=== PATIENT | male | born 1965 | race Hispanic/Latino ===

== ENCOUNTER 2025-07-19 06:33 | Observation (INO) | payer SELFPAY ==
[2025-07-19 07:15] VITALS: BMI 24.5
[2025-07-19] MEDS ORDERED: Glucagon 1 MG/ML KIT IM PRN (09:53)
[2025-07-19] MEDS ORDERED: Dextrose 50% Abboject 50 ML SYRINGE SLOW IVP PRN (09:53)
[2025-07-19] MEDS ORDERED: Acetaminophen 325 MG TAB PO PRN (09:56)
[2025-07-19] MEDS ORDERED: Ondansetron PF 4 MG/2 ML Vial IVP PRN (09:56)
[2025-07-19] MEDS ORDERED: Calcium Carbonate 500 MG ChewTAB PO PRN (09:56)
[2025-07-19] MEDS: Aspirin 81 mg Enteric Coated Tablet PO SCH (10:30)
[2025-07-19] MEDS: Furosemide 40 MG (4 mL) VIAL SLOW IVP SCH ×2 (10:30→13:20)
[2025-07-19 10:34] LABS: #Basophils 0.04 10x3/uL (0.0-0.2); #Eosinophils 0.26 10x3/uL (0.0-0.5); #Monocytes 0.44 10x3/uL (0.0-1.1); #Neutrophils 2.43 10x3/uL (1.5-8.4); %Basophils 0.9 % (0.0-2.0); %Eosinophils 5.8 % (0.0-6.0); %Lymphocytes 29.5 % (18.0-47.0); %Monocytes 9.8 % (0.0-10.0); %Neutrophils 53.8 % (40.0-75.0); Hematocrit 48.4 % (38.8-50.0); Hemoglobin 15.7 g/dL (13.5-17.5); Mean Corpuscular Hemoglobin 31.2 pg (27.0-33.0); Mean Corpuscular Volume 96.0 fL (81.2-95.1); Platelet Count 137 10x3/uL (150-450); Red Blood Cell (RBC) Count 5.04 10x6/uL (4.32-5.72); White Blood Cell (WBC) Count 4.51 10x3/uL (3.5-10.5)
[2025-07-19] MEDS: Ezetimibe 10 MG TAB PO SCH (10:50)
[2025-07-19] MEDS: Dapagliflozin Propanediol 10 MG TAB PO SCH (10:50)
[2025-07-19] MEDS: Enoxaparin 40 MG (0.4 mL) SYRINGE SC SCH (10:50)
[2025-07-19] MEDS: Lisinopril 5 MG TAB PO SCH (10:50)
[2025-07-19 11:12] LABS: Troponin I 0.253 ng/mL (< 0.028)
[2025-07-19 13:51] LABS: Troponin I 0.246 ng/mL (< 0.028)
[2025-07-19] MEDS: Guaifenesin DM 100-10/5 ML UDCUP PO PRN (17:21)
[2025-07-20 05:39] LABS: #Basophils 0.05 10x3/uL (0.0-0.2); #Eosinophils 0.30 10x3/uL (0.0-0.5); #Monocytes 0.69 10x3/uL (0.0-1.1); #Neutrophils 3.72 10x3/uL (1.5-8.4); %Basophils 0.8 % (0.0-2.0); %Eosinophils 4.8 % (0.0-6.0); %Lymphocytes 22.7 % (18.0-47.0); %Monocytes 11.1 % (0.0-10.0); %Neutrophils 60.1 % (40.0-75.0); Hematocrit 47.4 % (38.8-50.0); Hemoglobin 16.0 g/dL (13.5-17.5); Mean Corpuscular Hemoglobin 31.8 pg (27.0-33.0); Mean Corpuscular Volume 94.2 fL (81.2-95.1); Platelet Count 152 10x3/uL (150-450); Red Blood Cell (RBC) Count 5.03 10x6/uL (4.32-5.72); White Blood Cell (WBC) Count 6.20 10x3/uL (3.5-10.5)
[2025-07-20 05:52] LABS: Anion Gap 14 mmol/L (10-20); BUN (Urea Nitrogen) 27 mg/dL (8.4-25.7); Calc. Creatinine Clearance 53 mL/min (70-130); Calcium 8.9 mg/dL (7.8-10.44); Carbon Dioxide 25 mmol/L (23-31); Chloride 104 mmol/L (98-107); Glucose 141 mg/dL (80-115); Potassium 3.5 mmol/L (3.5-5.1); Sodium 139 mmol/L (136-145)
[2025-07-20] MEDS: Ezetimibe 10 MG TAB PO SCH (08:18)
[2025-07-20] MEDS: Enoxaparin 40 MG (0.4 mL) SYRINGE SC SCH (08:18)
[2025-07-20] MEDS: Lisinopril 5 MG TAB PO SCH (08:18)
[2025-07-20] MEDS: Dapagliflozin Propanediol 10 MG TAB PO SCH (08:18)
[2025-07-20] MEDS: Aspirin 81 mg Enteric Coated Tablet PO SCH (08:18)
[2025-07-20 11:33] VITALS: BP 95/60; TEMP 97.7
[2025-07-20] MEDS: glipiZIDE XL 5 mg ER.TAB PO SCH (13:39)
[2025-07-20] MEDS ORDERED: Carvedilol 3.125 MG TAB PO SCH (17:00)
[2025-07-21] MEDS ORDERED: Furosemide 40 MG TAB PO SCH (07:30)
[2025-07-21] MEDS ORDERED: glipiZIDE XL 5 mg ER.TAB PO SCH (08:00)
== END 2025-07-20 14:50 | disposition home or self-care (01) ==
LOC: CSHICU 06:33 → CSHTELE 07-20 11:02
PROVIDERS: ADMIT Internal Medicine; ATTEND Physician Assistant
DX: I13.0 Hypertensive heart and chronic kidney disease with heart failure and stage 1 through stage 4 chronic kidney disease, or unspecified chronic kidney disease (principal); I50.23 Acute on chronic systolic (congestive) heart failure; I25.10 Atherosclerotic heart disease of native coronary artery without angina pectoris; N18.31 Chronic kidney disease, stage 3a; E11.22 Type 2 diabetes mellitus with diabetic chronic kidney disease; E78.5 Hyperlipidemia, unspecified; F17.210 Nicotine dependence, cigarettes, uncomplicated; Z86.73 Personal history of transient ischemic attack (TIA), and cerebral infarction without residual deficits; Z79.82 Long term (current) use of aspirin; Z79.84 Long term (current) use of oral hypoglycemic drugs; Z79.899 Other long term (current) drug therapy; Z79.01 Long term (current) use of anticoagulants
CPT/HCPCS: 36415; 36416; 80048; 83880; 85025; 94762; 96372; 96374; 96376; G0378; J1650; J1815; J1940